=== PATIENT | female | born 1980 | race Caucasian/White ===

== ENCOUNTER 2017-05-14 22:13 | Observation (INO) | payer OTHER ==
[2017-05-14] MEDS ORDERED: Sodium Chloride 0.9% 2.5 ML Syringe FLUSH PRN (22:33)
[2017-05-14] MEDS ORDERED: Sodium Chloride 0.9% 1,000 ML IV ONE (22:33)
[2017-05-14] MEDS ORDERED: Sodium Chloride 0.9% 10 ML Syringe FLUSH PRN (22:33)
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
[2017-05-14 23:35] LABS: CHLORIDE,CL 106 mmol/L (98-110); SODIUM,NA 139 mmol/L (136-146)
[2017-05-15] MEDS ORDERED: Acetaminophen 325 MG Tab PO ONE (00:08)
[2017-05-15] MEDS ORDERED: Ketorolac 30 MG/ML SDV IVPUSH ONE (00:08)
[2017-05-15] MEDS ORDERED: Sodium Chloride 0.9% 1,000 ML IV ONE (00:37)
[2017-05-15] MEDS ORDERED: Acetaminophen 325 MG Tab PO PRN (02:25)
[2017-05-15] MEDS ORDERED: Ondansetron 4 MG/2 ML SDV IVPUSH PRN (02:25)
[2017-05-15] MEDS: Sodium Chloride 0.9% 1,000 ML IV SCH ×2 (02:58→09:12)
[2017-05-15 05:57] LABS: CHLORIDE,CL 113 mmol/L (98-110); SODIUM,NA 140 mmol/L (136-146)
[2017-05-15] MEDS ORDERED: traMADol 50 MG Tab PO ONE (08:07)
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
--- NOTE | 2017-05-15 09:13 | CT ---
EXAM DATE: 05/15/17 PATIENT'S AGE: 37 Patient: ELAN GOULD Facility: [place], [place] Site . Site : 1980 Study: CT Head WO CONT [id number]/[id number] 11:28:48 PM Ordering Physician: Damian Duenas Final Report: INDICATION: PASSED OUT TODAY, FEELING LIGHTHEADED AND DIZZY CT HEAD WITHOUT CONTRAST TECHNIQUE: Multiple axial CT images were performed through the head without intravenous contrast administration. COMPARISON: No previous studies are currently available for comparison. FINDINGS: No acute intracranial hemorrhage is identified. No extra-axial collections are evident and there is no mass effect or midline shift. The ventricles are normal in size and configuration. Brain parenchyma appears normal with unremarkable chakraborty-white differentiation. Osseous structures are within normal limits and no fractures are seen. Included portions of the paranasal sinuses and mastoid air cells are normally aerated. IMPRESSION: Normal non-contrast head CT. VASQUEZ NICOLE MD [employer] Dictated by Parvez Nicole MD @ 05/14/2017 11:34:43 PM Dictated by: Parvez Nicole MD @ 05/14/2017 23:37:16 (Electronic Signature) Report Signed by Proxy. [facility] CLINICFrancisca
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
--- NOTE | 2017-05-15 09:15 | CR ---
EXAM DATE: 05/15/17 PATIENT'S AGE: 37 Patient: ELAN GOULD Facility: [place], [place] Site . Site : 1980 Study: XRay Chest [id number]/8/[id number] 11:36:16 PM Ordering Physician: Damian Duenas Final Report: HISTORY: Passed out today. FINDINGS: AP portable chest radiograph demonstrates a normal cardiac silhouette. Pulmonary vasculature and holley are normal. No consolidation or pleural effusion is seen. Bony structures are normal. IMPRESSION: No acute cardiopulmonary disease. Dictated by Yeimy Velez MD @ 05/14/2017 11:41:53 PM Dictated by: Yeimy Velez MD @ 05/14/2017 23:42:04 (Electronic Signature) Report Signed by Proxy. [facility]
[2017-05-15] MEDS ORDERED: Ibuprofen 400 MG Tab PO PRN (10:27)
[2017-05-15 12:23] VITALS: BP 103/62
== END 2017-05-15 12:30 | disposition home or self-care (01) ==
LOC: MW.ED 22:13 → MW.MS 05-15 00:19
PROVIDERS: ADMIT Internal Medicine; ATTEND Internal Medicine
DX: R55 Syncope and collapse (principal); F17.210 Nicotine dependence, cigarettes, uncomplicated; G43.909 Migraine, unspecified, not intractable, without status migrainosus; G89.29 Other chronic pain; M54.2 Cervicalgia; M54.9 Dorsalgia, unspecified; Z79.899 Other long term (current) drug therapy; Z88.0 Allergy status to penicillin; Z91.040 Latex allergy status; Z87.440 Personal history of urinary (tract) infections; Z90.49 Acquired absence of other specified parts of digestive tract; Z98.890 Other specified postprocedural states
CPT/HCPCS: 36415; 70450; 71045; 72125; 80048; 80053; 81001; 81025; 82977; 84443; 84484; 85025; 85379; 85610; 87086; 93005; 96361; 96374; 99285; A9270; G0378; J1885; J7040; 99284